=== PATIENT | female | born 1940 | race Caucasian/White ===

== ENCOUNTER 2021-03-13 13:31 | Emergency (ER) | payer MEDICARE ==
[~2021-03-13] VITALS: Ht 162.6 cm; Wt 63.2 kg
[~2021-03-13 13:31] MED LIST: HAWT1CAP PO; IRBE75TA4 PO; MOOD400T PO; MUCI600T31 PO; ROBI1LIQ9 PO; ROBILIQ7 PO; VENTAER INH
[2021-03-13 15:47] LABS: BASO % 0.5 % (0.0-1.0); EOS # 0.3 10^3/uL (0.0-0.5); EOS % 5.6 % (0.0-3.0); HEMATOCRIT 35.3 % (36.0-47.0); HEMOGLOBIN 11.7 g/dl (12.0-15.5); LYMPH # 1.5 10^3/uL (1.5-5.0); LYMPH % 27.1 % (24.0-44.0); MEAN CORPUSCULAR HEMOGLOBIN 30.2 pg (27.0-33.0); MEAN CORPUSCULAR HGB CONC 33.1 g/dl (32.0-36.5); MONO # 0.5 10^3/uL (0.0-0.8); MONO % 8.7 % (2.0-8.0); NEUTROPHILS # 3.2 10^3/uL (1.5-8.5); NEUTROPHILS % 57.9 % (36.0-66.0); PLATELET COUNT, AUTOMATED 261 10^3/uL (150-450); RED BLOOD COUNT 3.88 10^6/uL (4.00-5.40); WHITE BLOOD COUNT 5.5 10^3/uL (4.0-10.0)
[2021-03-13 16:31] LABS: ALBUMIN 3.9 GM/DL (3.2-5.2); ALT/SGPT 25 U/L (12-78); BILIRUBIN,DIRECT 0.1 MG/DL (0.0-0.2); BILIRUBIN,TOTAL 0.5 MG/DL (0.2-1.0); BLOOD UREA NITROGEN 26 MG/DL (7-18); CALCIUM LEVEL 9.4 MG/DL (8.8-10.2); CARBON DIOXIDE LEVEL 28 MEQ/L (21-32); CHLORIDE LEVEL 111 MEQ/L (98-107); GLOMERULAR FILTRATION RATE > 60.0 (>32); GLUCOSE, FASTING 106 MG/DL (70-100); NT-PRO BNP 156 PG/ML (<450); POTASSIUM SERUM 4.2 MEQ/L (3.5-5.1); SODIUM LEVEL 144 MEQ/L (136-145); THYROID STIMULATING HORMONE 0.392 uIU/ML (0.358-3.740); TOTAL PROTEIN 6.8 GM/DL (6.4-8.2)
[2021-03-13] MEDS ORDERED: ISOVUE-370 76% 100ML VIAL As Ordered ONE (16:41)
[2021-03-13] MEDS ORDERED: methylPREDNISolone 125MG 2ML VIAL IV ONE (17:30)
[2021-03-13] MEDS ORDERED: PRED10TA2 PO (17:39)
== END 2021-03-13 17:52 | disposition home or self-care (01) ==
LOC: M ED 13:31 → MERGE 13:31 → M ED 17:52
DX: J44.1 Chronic obstructive pulmonary disease with (acute) exacerbation (principal); R22.42 Localized swelling, mass and lump, left lower limb; I10 Essential (primary) hypertension; K21.9 Gastro-esophageal reflux disease without esophagitis; Z79.899 Other long term (current) drug therapy; F17.210 Nicotine dependence, cigarettes, uncomplicated
CPT/HCPCS: 71045; 71275; 80047; 80048; 80076; 83880; 84443; 84484; 85025; 93005; 93041; 93971; 94760; 96374; 99285; J2930; Q9967

== ENCOUNTER 2021-03-13 19:04 | Emergency (ER) | payer OTHER, MEDICARE ==
[~2021-03-13] VITALS: Ht 167.6 cm; Wt 65.9 kg
[~2021-03-13 19:04] MED LIST changes: +PRED10TA2 PO
== END 2021-03-13 21:53 | disposition home or self-care (01) ==
LOC: M ED 19:04 → MERGE 19:04 → M ED 21:53
DX: S50.11XA Contusion of right forearm, initial encounter (principal); S20.219A Contusion of unspecified front wall of thorax, initial encounter; V49.49XA Driver injured in collision with other motor vehicles in traffic accident, initial encounter; Y92.410 Unspecified street and highway as the place of occurrence of the external cause; I10 Essential (primary) hypertension; J44.9 Chronic obstructive pulmonary disease, unspecified; K21.9 Gastro-esophageal reflux disease without esophagitis; Z79.899 Other long term (current) drug therapy

== ENCOUNTER → 2022-01-26 | Outpatient (CLI) | payer MEDICARE | LOC: M WHC 10:15 | PROVIDERS: ATTEND Family Medicine | DX: E04.2 Nontoxic multinodular goiter (principal) ==

== ENCOUNTER → 2022-04-27 | Outpatient (CLI) | payer MEDICARE | LOC: M PLAIMG 08:33 | PROVIDERS: ATTEND Internal Medicine Pulmonary Disease | DX: J44.9 Chronic obstructive pulmonary disease, unspecified (principal) ==

== ENCOUNTER → 2022-10-01 | Outpatient (CLI) | payer MEDICARE | LOC: M RAD 10:30 | PROVIDERS: ATTEND Family Medicine | DX: E04.2 Nontoxic multinodular goiter (principal) ==

== ENCOUNTER → 2022-11-16 | Outpatient (CLI) | payer MEDICARE | LOC: M PLAIMG 07:50 | PROVIDERS: ATTEND Family Medicine | DX: M54.16 Radiculopathy, lumbar region (principal); I60.7 Nontraumatic subarachnoid hemorrhage from unspecified intracranial artery ==

== ENCOUNTER → 2023-03-31 | Outpatient (CLI) | payer MEDICARE | LOC: M RAD 11:41 | PROVIDERS: ATTEND Family Medicine | DX: E04.2 Nontoxic multinodular goiter (principal); J44.9 Chronic obstructive pulmonary disease, unspecified; I25.10 Atherosclerotic heart disease of native coronary artery without angina pectoris ==

== ENCOUNTER → 2023-05-06 | Outpatient (CLI) | payer MEDICARE | LOC: M RAD 10:13 | PROVIDERS: ATTEND Internal Medicine Pulmonary Disease | DX: J44.9 Chronic obstructive pulmonary disease, unspecified (principal) ==

== ENCOUNTER → 2023-06-15 | Outpatient (CLI) | payer MEDICARE | LOC: M WHC 09:12 | PROVIDERS: ATTEND Family Medicine | DX: Z13.820 Encounter for screening for osteoporosis (principal); M85.89 Other specified disorders of bone density and structure, multiple sites ==

== ENCOUNTER 2023-07-01 19:49 | Observation (INO) | payer MEDICARE ==
[~2023-07-01] VITALS: Ht 157.5 cm; Wt 52.7 kg
[2023-07-01] MEDS ORDERED: ISOVUE-370 76% 100ML VIAL As Ordered ONE (20:30)
[2023-07-01 20:42] LABS: BASO # 0.1 10^3/uL (0.0-0.2); BASO % 0.9 % (0.0-1.0); EOS # 0.3 10^3/uL (0.0-0.5); EOS % 4.7 % (0.0-3.0); HEMATOCRIT 35.4 % (36.0-47.0); HEMOGLOBIN 11.7 g/dl (12.0-15.5); LYMPH # 1.7 10^3/uL (1.5-5.0); LYMPH % 24.2 % (24.0-44.0); MEAN CORPUSCULAR HEMOGLOBIN 29.8 pg (27.0-33.0); MEAN CORPUSCULAR HGB CONC 33.1 g/dl (32.0-36.5); MEAN CORPUSCULAR VOLUME 90.3 fl (80.0-96.0); MONO # 0.6 10^3/uL (0.0-0.8); MONO % 8.7 % (2.0-8.0); NEUTROPHILS # 4.3 10^3/uL (1.5-8.5); NEUTROPHILS % 61.2 % (36.0-66.0); PLATELET COUNT, AUTOMATED 275 10^3/uL (150-450); RED BLOOD COUNT 3.92 10^6/uL (4.00-5.40)
[2023-07-01 20:56] LABS: INR 1.05; PARTIAL THROMBOPLASTIN TIME 26.7 SECONDS (24.8-34.2); PROTHROMBIN TIME 13.4 SECONDS (12.5-14.5)
[2023-07-01 21:06] LABS: ALBUMIN 3.6 G/DL (3.2-5.2); BILIRUBIN,DIRECT 0.2 MG/DL (<0.4); BILIRUBIN,TOTAL 0.5 MG/DL (0.3-1.2); TOTAL PROTEIN 6.3 G/DL (5.7-8.2)
[2023-07-01 21:24] LABS: RSV AMPLIFICATION NEGATIVE (NEGATIVE)
[2023-07-01] MEDS ORDERED: SPIR12.9 INH (21:53)
[2023-07-01] MEDS ORDERED: LABE20TAB PO (21:53)
[2023-07-01] MEDS ORDERED: SPIR-10 PO (21:53)
[2023-07-01] MEDS ORDERED: HYDR-3363 PO (21:53)
[2023-07-01] MEDS ORDERED: HOME MED LIST COMPLETE! XX SCH (21:55)
[2023-07-01] MEDS ORDERED: ACETAMINOPHEN TAB 650MG DOSE (2X325MG) PO PRN (22:25)
[2023-07-01] MEDS ORDERED: ALBUTEROL 90 MCG/ACT 8GM HFA INHALER INH PRN (23:20)
[2023-07-01 23:45] LABS: ALBUMIN 3.5 G/DL (3.2-5.2); ALKALINE PHOSPHATASE 54 U/L (46-116); ALT/SGPT 23 U/L (7.0-40); AST/SGOT 23 U/L (<34); BILIRUBIN,TOTAL 0.4 MG/DL (0.3-1.2); BLOOD UREA NITROGEN 23 MG/DL (9-23); CALCIUM LEVEL 9.3 MG/DL (8.3-10.6); CARBON DIOXIDE LEVEL 28 MMOL/L (20-31); CHLORIDE LEVEL 105 MMOL/L (98-107); CREATININE FOR GFR 0.79 MG/DL (0.55-1.30); GLOMERULAR FILTRATION RATE > 60.0 (>32); GLUCOSE, FASTING 99 MG/DL (74-106); POTASSIUM SERUM 4.8 MMOL/L (3.5-5.1); SODIUM LEVEL 141 MMOL/L (136-145); TOTAL PROTEIN 6.3 G/DL (5.7-8.2)
[2023-07-02 00:45] VITALS: BP 137/57; TEMP 98.8; O2SAT 95
[2023-07-02 04:00] VITALS: BP 130/50; TEMP 97; O2SAT 95
[2023-07-02 04:24] LABS: HEMATOCRIT 32.7 % (36.0-47.0); MEAN CORPUSCULAR HEMOGLOBIN 30.2 pg (27.0-33.0); MEAN CORPUSCULAR HGB CONC 33.6 g/dl (32.0-36.5); MEAN CORPUSCULAR VOLUME 89.8 fl (80.0-96.0); PLATELET COUNT, AUTOMATED 250 10^3/uL (150-450); RED BLOOD COUNT 3.64 10^6/uL (4.00-5.40); WHITE BLOOD COUNT 6.2 10^3/uL (4.0-10.0)
[2023-07-02 04:58] LABS: ALBUMIN 3.4 G/DL (3.2-5.2); ALKALINE PHOSPHATASE 53 U/L (46-116); ALT/SGPT 15 U/L (7.0-40); AST/SGOT 13 U/L (<34); BILIRUBIN,TOTAL 0.4 MG/DL (0.3-1.2); BLOOD UREA NITROGEN 22 MG/DL (9-23); CALCIUM LEVEL 9.3 MG/DL (8.3-10.6); CARBON DIOXIDE LEVEL 26 MMOL/L (20-31); CHLORIDE LEVEL 106 MMOL/L (98-107); CHOLESTEROL LEVEL 159 MG/DL (<200); CHOLESTEROL RISK RATIO 2.55 (<5); CREATININE FOR GFR 0.74 MG/DL (0.55-1.30); GLOMERULAR FILTRATION RATE > 60.0 (>32); GLUCOSE, FASTING 101 MG/DL (74-106); HDL CHOLESTEROL 62.3 MG/DL (>40); LDL CHOLESTEROL 80.9 MG/DL (<100); NON-HDL-C 96.7 MG/DL; POTASSIUM SERUM 3.9 MMOL/L (3.5-5.1); SODIUM LEVEL 139 MMOL/L (136-145); TRIGLYCERIDES LEVEL 79 MG/DL (<150)
[2023-07-02] MEDS ORDERED: TIOTROPIUM INHALER/CAPSULE (SPIRIVA) INH SCH (08:00)
[2023-07-02] MEDS ORDERED: LABETALOL 200 MG TAB PO SCH (09:00)
[2023-07-02] MEDS ORDERED: ENOXAPARIN 40MG/0.4ML SYRINGE (J1650 PER 10MG) SC SCH (09:00)
[2023-07-02] MEDS ORDERED: SPIRONOLACTONE 25 MG TAB PO SCH (09:00)
[2023-07-02] MEDS ORDERED: PANTOPRAZOLE 40MG TAB (PROTONIX) PO SCH (09:00)
[2023-07-02] MEDS ORDERED: ATOR1TAB21 PO ×2 (09:50→10:07)
[2023-07-02] MEDS ORDERED: ASPI81CH8 PO ×2 (09:50→10:07)
[2023-07-02] MEDS ORDERED: ASPIRIN 81MG CHEW TABLET PO SCH (09:50)
[2023-07-02 10:00] VITALS: BP 134/61; TEMP 97.7; O2SAT 94
[2023-07-02 13:15] VITALS: BP 151/75
[2023-07-02] MEDS ORDERED: CARA1TAB6 PO ×2 (13:16→13:43)
[2023-07-02 14:00] VITALS: BP 145/65; TEMP 98.2; O2SAT 94
[2023-07-02] MEDS ORDERED: SUCRALFATE SUSP 1GM/10ML UD PO ONE (14:00)
[2023-07-02] MEDS ORDERED: DICYCLOMINE 10 MG CAP PO ONE (15:00)
[2023-07-02] MEDS ORDERED: SENO8.6T10 PO (15:29)
[2023-07-02] MEDS ORDERED: MIRA3350 PO (15:29)
[2023-07-02] MEDS ORDERED: SFHMOMUDC PO (15:29)
[2023-07-02] MEDS ORDERED: MOM 30ML SUSPENSION UDC PO ONE (15:30)
[2023-07-02] MEDS ORDERED: SENOKOT S TAB PO ONE (15:30)
[2023-07-02] MEDS ORDERED: MIRALAX *UNIT DOSE* 17GM PACKET PO ONE (15:30)
[2023-07-02] MEDS ORDERED: ATORVASTATIN 20 MG TAB PO SCH (21:00)
== END 2023-07-02 16:40 | disposition home or self-care (01) ==
LOC: M ED 19:49 → M ED INP 22:24 → ENRESERV 23:58 → M MSPAV 07-02 00:45
PROVIDERS: ADMIT Internal Medicine; ATTEND General Practice
DX: G45.9 Transient cerebral ischemic attack, unspecified (principal); I16.0 Hypertensive urgency; I44.0 Atrioventricular block, first degree; J44.9 Chronic obstructive pulmonary disease, unspecified; R29.700 NIHSS score 0; F17.210 Nicotine dependence, cigarettes, uncomplicated; Z79.899 Other long term (current) drug therapy; Z79.82 Long term (current) use of aspirin; Z66 Do not resuscitate
CPT/HCPCS: 36415; 70450; 70496; 70498; 70551; 71045; 74018; 80047; 80053; 80061; 80076; 81001; 83605; 84484; 85025; 85027; 85610; 85730; 87631; 93005; 93041; 94664; 94760; 97161; 99285; Q9967

== ENCOUNTER → 2023-10-25 | Outpatient (CLI) | payer MEDICARE ==
[~2023-10-25] MED LIST changes: +ASPI81CH8 PO; +ATOR1TAB21 PO; +CARA1TAB6 PO; +HYDR-3363 PO; +IRBE75TA11 PO; -IRBE75TA4 PO; +LABE20TAB PO; +MIRA3350 PO; +SENO8.6T10 PO; +SFHMOMUDC PO; +SPIR-10 PO; +SPIR12.9 INH
== END ==
LOC: M RAD 14:13
PROVIDERS: ATTEND Family Medicine
DX: E04.2 Nontoxic multinodular goiter (principal)

== ENCOUNTER 2024-06-11 02:51 | Observation (INO) | payer MEDICARE ==
[~2024-06-11] VITALS: Ht 162.6 cm; Wt 47.3 kg
[~2024-06-11 02:51] MED LIST changes: +MOOD PLUS SAM-400 MG PO; -MOOD400T PO
[2024-06-11] MEDS ORDERED: ISOVUE-370 76% 100ML VIAL As Ordered ONE (03:39)
[2024-06-11 03:51] LABS: BASO # 0.1 10^3/uL (0.0-0.2); BASO % 0.9 % (0.0-1.0); EOS # 0.4 10^3/uL (0.0-0.5); EOS % 6.2 % (0.0-3.0); HEMATOCRIT 34.6 % (36.0-47.0); HEMOGLOBIN 11.3 g/dl (12.0-15.5); LYMPH # 1.9 10^3/uL (1.5-5.0); LYMPH % 32.9 % (24.0-44.0); MEAN CORPUSCULAR HEMOGLOBIN 29.7 pg (27.0-33.0); MEAN CORPUSCULAR HGB CONC 32.7 g/dl (32.0-36.5); MEAN CORPUSCULAR VOLUME 91.1 fl (80.0-96.0); MONO # 0.5 10^3/uL (0.0-0.8); MONO % 9.4 % (2.0-8.0); NEUTROPHILS # 2.9 10^3/uL (1.5-8.5); NEUTROPHILS % 50.4 % (36.0-66.0); PLATELET COUNT, AUTOMATED 271 10^3/uL (150-450); WHITE BLOOD COUNT 5.8 10^3/uL (4.0-10.0)
[2024-06-11 03:52] VITALS: BP 194/76; O2SAT 97
[2024-06-11 04:03] LABS: INR 0.88; PARTIAL THROMBOPLASTIN TIME 26.4 SECONDS (24.8-34.2); PROTHROMBIN TIME 12.2 SECONDS (12.5-14.5)
[2024-06-11 04:13] LABS: BLOOD UREA NITROGEN 20 MG/DL (9-23); CALCIUM LEVEL 9.3 MG/DL (8.3-10.6); CARBON DIOXIDE LEVEL 28 MMOL/L (20-31); CHLORIDE LEVEL 110 MMOL/L (98-107); CREATININE FOR GFR 0.95 MG/DL (0.55-1.30); GLOMERULAR FILTRATION RATE 59.5 (>32); GLUCOSE, FASTING 121 MG/DL (74-106); SODIUM LEVEL 140 MMOL/L (136-145)
[2024-06-11] MEDS: ASPIRIN 325 MG TAB PO ONE (05:50)
[2024-06-11] MEDS ORDERED: INCR1INH INH (06:12)
[2024-06-11] MEDS ORDERED: SAM-400T3 PO (06:12)
[2024-06-11] MEDS ORDERED: PRIM50TA6 PO (06:12)
[2024-06-11] MEDS ORDERED: BREO1INH3 INH (06:12)
[2024-06-11] MEDS ORDERED: AMLO1TAB24 PO (06:12)
[2024-06-11] MEDS ORDERED: HOME MED LIST COMPLETE! XX SCH (06:15)
[2024-06-11] MEDS: ASPIRIN 81MG ENTERIC TABLET PO SCH (09:00)
[2024-06-11 09:08] LABS: ALBUMIN 3.2 G/DL (3.2-5.2); ALKALINE PHOSPHATASE 91 U/L (35-104); ALT/SGPT 13 U/L (7.0-40); AST/SGOT < 8 U/L (<34); BILIRUBIN,DIRECT < 0.1 MG/DL (<0.4); BILIRUBIN,TOTAL 0.3 MG/DL (0.3-1.2); CHOLESTEROL LEVEL 182 MG/DL (<200); CHOLESTEROL RISK RATIO 2.55 (<5); HDL CHOLESTEROL 71.1 MG/DL (>40); LDL CHOLESTEROL 95.7 MG/DL (<100); NON-HDL-C 110.9 MG/DL; TOTAL PROTEIN 6.1 G/DL (5.7-8.2); TRIGLYCERIDES LEVEL 76 MG/DL (<150)
[2024-06-11 09:11] LABS: FREE T4 1.12 NG/DL (0.89-1.76); THYROID STIMULATING HORMONE 1.163 uIU/ML (0.55-4.78)
[2024-06-11] MEDS ORDERED: ALBUTEROL 90 MCG/ACT 8GM HFA INHALER INH PRN (09:25)
[2024-06-11 09:30] VITALS: BP_SYST 149; BP_SYST 152; BP_DIAS 64; BP_DIAS 68; TEMP 97.7; O2SAT 97
[2024-06-11 09:38] VITALS: BP 149/68; TEMP 97.7; O2SAT 97
[2024-06-11] MEDS: CLOPIDOGREL 75 MG TAB PO SCH (09:49)
[2024-06-11] MEDS: ATORVASTATIN 20 MG TAB PO SCH (09:49)
[2024-06-11 09:54] LABS: HEMOGLOBIN A1c 5.4 % (4.0-6.0)
[2024-06-11 11:14] VITALS: BP 165/70; TEMP 98.4; O2SAT 96
[2024-06-11] MEDS: NICOTINE 14 MG/24 HR TRANSDERMAL TD SCH (12:54)
[2024-06-11] MEDS: LIDOCAINE 5% (LIDODERM) PATCH TD PRN (12:54)
[2024-06-11] MEDS ORDERED: hydrALAZINE 20MG/ML 1ML VIAL IV PRN (13:10)
[2024-06-11 16:24] VITALS: BP 148/68; TEMP 97.2; O2SAT 95
[2024-06-11] MEDS: SYMBICORT 160/4.5MCG INHALER 6GM INH SCH (20:13)
[2024-06-11 20:26] VITALS: BP 158/64; TEMP 97.1; O2SAT 94
[2024-06-11] MEDS: ACETAMINOPHEN 325 MG TAB PO PRN (20:59)
[2024-06-11] MEDS: PRIMIDONE 25MG PER 1/2 TABLET PO SCH (21:00)
[2024-06-12] VITALS (10 sets, daily range): BP systolic 126–178; BP diastolic 62–88; TEMP 97.1–98.6; O2SAT 94–98
[2024-06-12 05:49] LABS: BASO # 0.1 10^3/uL (0.0-0.2); EOS # 0.3 10^3/uL (0.0-0.5); EOS % 5.7 % (0.0-3.0); HEMATOCRIT 33.6 % (36.0-47.0); HEMOGLOBIN 10.9 g/dl (12.0-15.5); LYMPH # 1.6 10^3/uL (1.5-5.0); LYMPH % 26.2 % (24.0-44.0); MEAN CORPUSCULAR HEMOGLOBIN 29.1 pg (27.0-33.0); MEAN CORPUSCULAR HGB CONC 32.4 g/dl (32.0-36.5); MEAN CORPUSCULAR VOLUME 89.8 fl (80.0-96.0); MONO # 0.6 10^3/uL (0.0-0.8); MONO % 9.5 % (2.0-8.0); NEUTROPHILS # 3.4 10^3/uL (1.5-8.5); NEUTROPHILS % 57.3 % (36.0-66.0); PLATELET COUNT, AUTOMATED 235 10^3/uL (150-450); RED BLOOD COUNT 3.74 10^6/uL (4.00-5.40); WHITE BLOOD COUNT 5.9 10^3/uL (4.0-10.0)
[2024-06-12 06:14] LABS: BLOOD UREA NITROGEN 15 MG/DL (9-23); CALCIUM LEVEL 9.2 MG/DL (8.3-10.6); CARBON DIOXIDE LEVEL 27 MMOL/L (20-31); CHLORIDE LEVEL 113 MMOL/L (98-107); CREATININE FOR GFR 0.61 MG/DL (0.55-1.30); GLOMERULAR FILTRATION RATE > 60.0 (>32); GLUCOSE, FASTING 103 MG/DL (74-106); POTASSIUM SERUM 4.1 MMOL/L (3.5-5.1); SODIUM LEVEL 143 MMOL/L (136-145)
[2024-06-12] MEDS: TIOTROPIUM INHALER/CAPSULE (SPIRIVA) INH SCH (08:00)
[2024-06-12] MEDS: amLODIPine 5 MG TAB PO SCH (08:21)
[2024-06-12] MEDS ORDERED: ASPI-1 PO (08:47)
[2024-06-12] MEDS ORDERED: ATOR40TA75 PO (08:47)
[2024-06-12] MEDS ORDERED: ATOR1TAB21 PO (08:47)
[2024-06-12] MEDS: CARVedilol 3.125 MG TAB PO ONE (13:42)
[2024-06-12] MEDS: amLODIPine 5 MG TAB PO ONE (13:42)
[2024-06-12] MEDS: hydrALAZINE 20MG/ML 1ML VIAL IV ONE (15:39)
[2024-06-12] MEDS: LABETALOL 100MG/20ML VIAL IV ONE (16:55)
[2024-06-12] MEDS ORDERED: LABETALOL 100MG/20ML VIAL IV STA (17:05)
[2024-06-12] MEDS: cloNIDine 0.1MG TABLET PO ONE (17:28)
[2024-06-12] MEDS: LABETALOL 200 MG TAB PO ONE (18:13)
[2024-06-13] MEDS ORDERED: LABETALOL 200 MG TAB PO SCH (09:00)
== END 2024-06-12 19:29 | disposition home or self-care (01) ==
LOC: M ED 02:51 → M ED INP 02:52 → M PCU 09:22
PROVIDERS: ADMIT Internal Medicine; ATTEND Internal Medicine
DX: R29.810 Facial weakness (principal); R20.0 Anesthesia of skin; I10 Essential (primary) hypertension; E78.5 Hyperlipidemia, unspecified; M54.2 Cervicalgia; J44.9 Chronic obstructive pulmonary disease, unspecified; K21.9 Gastro-esophageal reflux disease without esophagitis; G25.0 Essential tremor; M48.07 Spinal stenosis, lumbosacral region; M85.68 Other cyst of bone, other site; Z86.73 Personal history of transient ischemic attack (TIA), and cerebral infarction without residual deficits; G31.1 Senile degeneration of brain, not elsewhere classified; I67.82 Cerebral ischemia; I44.0 Atrioventricular block, first degree; F17.210 Nicotine dependence, cigarettes, uncomplicated; Z90.711 Acquired absence of uterus with remaining cervical stump; Z98.41 Cataract extraction status, right eye; Z98.42 Cataract extraction status, left eye; Z80.9 Family history of malignant neoplasm, unspecified; Z79.899 Other long term (current) drug therapy
CPT/HCPCS: 36415; 70450; 70496; 70498; 70551; 71045; 80047; 80048; 80061; 80076; 83036; 83735; 84439; 84443; 85025; 85610; 85730; 93005; 93041; 93306; 94640; 94760; 96374; 96375; 97161; 97165; 99285; G0378; J0360; J1920; Q9967

== ENCOUNTER 2024-06-14 15:07 | Observation (INO) | payer MEDICARE ==
[~2024-06-14] VITALS: Ht 160 cm; Wt 52.3 kg
[2024-06-14] VITALS (8 sets, daily range): BP systolic 120–173; BP diastolic 53–80; TEMP 97.4–98.5; O2SAT 93–97
[~2024-06-14 15:07] MED LIST changes: +AMLO1TAB24 PO; +ASPI-1 PO; +ATOR40TA75 PO; +BREO1INH3 INH; +INCR1INH INH; +PRIM50TA6 PO; +SAM-400T3 PO
[2024-06-14 15:56] LABS: BASO # 0.1 10^3/uL (0.0-0.2); BASO % 0.8 % (0.0-1.0); EOS # 0.3 10^3/uL (0.0-0.5); EOS % 4.8 % (0.0-3.0); HEMATOCRIT 33.8 % (36.0-47.0); HEMOGLOBIN 11.1 g/dl (12.0-15.5); LYMPH # 1.6 10^3/uL (1.5-5.0); LYMPH % 27.2 % (24.0-44.0); MEAN CORPUSCULAR HEMOGLOBIN 29.9 pg (27.0-33.0); MEAN CORPUSCULAR HGB CONC 32.8 g/dl (32.0-36.5); MEAN CORPUSCULAR VOLUME 91.1 fl (80.0-96.0); MONO # 0.5 10^3/uL (0.0-0.8); MONO % 8.8 % (2.0-8.0); NEUTROPHILS # 3.4 10^3/uL (1.5-8.5); NEUTROPHILS % 58.1 % (36.0-66.0); PLATELET COUNT, AUTOMATED 284 10^3/uL (150-450); RED BLOOD COUNT 3.71 10^6/uL (4.00-5.40); WHITE BLOOD COUNT 5.9 10^3/uL (4.0-10.0)
[2024-06-14] MEDS ORDERED: ISOVUE-370 76% 100ML VIAL As Ordered ONE (16:09)
[2024-06-14 16:11] LABS: INR 0.93; PARTIAL THROMBOPLASTIN TIME 25.4 SECONDS (24.8-34.2); PROTHROMBIN TIME 12.8 SECONDS (12.5-14.5)
[2024-06-14 16:21] LABS: BLOOD UREA NITROGEN 35 MG/DL (9-23); CALCIUM LEVEL 9.8 MG/DL (8.3-10.6); CARBON DIOXIDE LEVEL 28 MMOL/L (20-31); CHLORIDE LEVEL 107 MMOL/L (98-107); CREATININE FOR GFR 0.77 MG/DL (0.55-1.30); GLOMERULAR FILTRATION RATE > 60.0 (>32); GLUCOSE, FASTING 140 MG/DL (74-106); POTASSIUM SERUM 4.4 MMOL/L (3.5-5.1); SODIUM LEVEL 138 MMOL/L (136-145)
[2024-06-14] MEDS ORDERED: ATOR40TA75 PO (17:00)
[2024-06-14] MEDS ORDERED: BAYE325T13 PO (17:00)
[2024-06-14] MEDS ORDERED: HOME MED LIST COMPLETE! XX SCH (17:00)
[2024-06-14] MEDS ORDERED: ALBUTEROL 90 MCG/ACT 8GM HFA INHALER INH PRN (17:45)
[2024-06-15] MEDS: PRIMIDONE 25MG PER 1/2 TABLET PO SCH (00:25)
[2024-06-15 03:13] VITALS: BP 126/60; TEMP 97; O2SAT 96
[2024-06-15 04:18] VITALS: BP 126/60; TEMP 97; O2SAT 96
[2024-06-15 06:24] LABS: BASO % 0.8 % (0.0-1.0); EOS # 0.3 10^3/uL (0.0-0.5); EOS % 5.9 % (0.0-3.0); HEMATOCRIT 32.6 % (36.0-47.0); HEMOGLOBIN 10.6 g/dl (12.0-15.5); LYMPH # 1.5 10^3/uL (1.5-5.0); LYMPH % 29.3 % (24.0-44.0); MEAN CORPUSCULAR HEMOGLOBIN 29.4 pg (27.0-33.0); MEAN CORPUSCULAR HGB CONC 32.5 g/dl (32.0-36.5); MEAN CORPUSCULAR VOLUME 90.6 fl (80.0-96.0); MONO # 0.6 10^3/uL (0.0-0.8); MONO % 10.5 % (2.0-8.0); NEUTROPHILS # 2.8 10^3/uL (1.5-8.5); NEUTROPHILS % 53.1 % (36.0-66.0); PLATELET COUNT, AUTOMATED 242 10^3/uL (150-450); WHITE BLOOD COUNT 5.3 10^3/uL (4.0-10.0)
[2024-06-15 06:51] LABS: BLOOD UREA NITROGEN 32 MG/DL (9-23); CALCIUM LEVEL 9.5 MG/DL (8.3-10.6); CARBON DIOXIDE LEVEL 28 MMOL/L (20-31); CHLORIDE LEVEL 112 MMOL/L (98-107); GLOMERULAR FILTRATION RATE > 60.0 (>32); GLUCOSE, FASTING 93 MG/DL (74-106); POTASSIUM SERUM 4.3 MMOL/L (3.5-5.1); SODIUM LEVEL 143 MMOL/L (136-145)
[2024-06-15 08:00] VITALS: BP 147/68; TEMP 97.4; O2SAT 95
[2024-06-15] MEDS: ENOXAPARIN 40MG/0.4ML SYRINGE (J1650 PER 10MG) SC SCH (08:13)
[2024-06-15] MEDS: CLOPIDOGREL 75 MG TAB PO SCH (08:13)
[2024-06-15] MEDS: ATORVASTATIN 20 MG TAB PO SCH (08:13)
[2024-06-15] MEDS: ACETAMINOPHEN 325 MG TAB PO PRN (08:18)
[2024-06-15] MEDS ORDERED: CLOP75TA99 PO (09:01)
[2024-06-15] MEDS ORDERED: LABE200T5 PO (12:21)
== END 2024-06-15 12:39 | disposition home or self-care (01) ==
LOC: M ED 15:07 → M ED INP 15:08 → M PCU 21:11
PROVIDERS: ADMIT Internal Medicine; ATTEND Internal Medicine
DX: I63.532 Cerebral infarction due to unspecified occlusion or stenosis of left posterior cerebral artery (principal); E78.5 Hyperlipidemia, unspecified; I10 Essential (primary) hypertension; J44.9 Chronic obstructive pulmonary disease, unspecified; K21.9 Gastro-esophageal reflux disease without esophagitis; G25.0 Essential tremor; M48.07 Spinal stenosis, lumbosacral region; M85.68 Other cyst of bone, other site; Z86.73 Personal history of transient ischemic attack (TIA), and cerebral infarction without residual deficits; G31.1 Senile degeneration of brain, not elsewhere classified; Z98.41 Cataract extraction status, right eye; Z98.42 Cataract extraction status, left eye; Z90.711 Acquired absence of uterus with remaining cervical stump; Z98.890 Other specified postprocedural states; Z80.9 Family history of malignant neoplasm, unspecified; F17.210 Nicotine dependence, cigarettes, uncomplicated; Z79.899 Other long term (current) drug therapy; Z79.82 Long term (current) use of aspirin; Z66 Do not resuscitate
CPT/HCPCS: 36415; 70450; 70496; 70498; 70551; 71045; 80047; 80048; 83735; 85025; 85610; 85730; 86850; 86900; 86901; 93005; 93041; 94760; 95819; 96372; 97161; 99285; G0378; J1650; Q9967

== ENCOUNTER → 2024-06-15 | Outpatient (CLI) | payer MEDICARE ==
[~2024-06-15] MED LIST changes: +BAYE325T13 PO; +CLOP75TA99 PO; +LABE200T5 PO
== END ==
LOC: M EKG 12:46
PROVIDERS: ATTEND Internal Medicine
DX: I63.9 Cerebral infarction, unspecified (principal)

== ENCOUNTER → 2024-12-03 | Outpatient (CLI) | payer MEDICARE | LOC: M PLAIMG 12:09 | PROVIDERS: ATTEND Internal Medicine Pulmonary Disease | DX: J44.9 Chronic obstructive pulmonary disease, unspecified (principal) ==

== ENCOUNTER 2024-12-12 10:26 | Emergency (ER) | payer MEDICARE ==
[~2024-12-12] VITALS: Ht 157.5 cm; Wt 51.6 kg
[2024-12-12 11:08] LABS: BASO # 0.1 10^3/uL (0.0-0.2); EOS # 0.3 10^3/uL (0.0-0.5); EOS % 4.8 % (0.0-3.0); HEMATOCRIT 36.9 % (36.0-47.0); HEMOGLOBIN 12.2 g/dl (12.0-15.5); LYMPH # 1.3 10^3/uL (1.5-5.0); LYMPH % 21.9 % (24.0-44.0); MEAN CORPUSCULAR HEMOGLOBIN 30.4 pg (27.0-33.0); MEAN CORPUSCULAR HGB CONC 33.1 g/dl (32.0-36.5); MONO # 0.6 10^3/uL (0.0-0.8); MONO % 10.5 % (2.0-8.0); NEUTROPHILS # 3.7 10^3/uL (1.5-8.5); NEUTROPHILS % 61.6 % (36.0-66.0); PLATELET COUNT, AUTOMATED 267 10^3/uL (150-450); RED BLOOD COUNT 4.01 10^6/uL (4.00-5.40)
[2024-12-12 11:21] LABS: INR 0.87; PARTIAL THROMBOPLASTIN TIME 26.2 SECONDS (24.8-34.2); PROTHROMBIN TIME 12.1 SECONDS (12.5-14.5)
[2024-12-12 11:31] LABS: CALCIUM LEVEL 9.2 MG/DL (8.3-10.6); CREATININE FOR GFR 0.71 MG/DL (0.55-1.30); GLOMERULAR FILTRATION RATE 82.8 (>32); POTASSIUM SERUM 4.4 MMOL/L (3.5-5.1)
[2024-12-12] MEDS ORDERED: CLOP75TA99 PO (12:12)
[2024-12-12 12:29] VITALS: BP 162/71; TEMP 98.7; O2SAT 96
== END 2024-12-12 12:25 | disposition home or self-care (01) ==
LOC: M ED 10:26
DX: G45.9 Transient cerebral ischemic attack, unspecified (principal); J44.9 Chronic obstructive pulmonary disease, unspecified; K21.9 Gastro-esophageal reflux disease without esophagitis; I10 Essential (primary) hypertension; E78.5 Hyperlipidemia, unspecified; Z86.73 Personal history of transient ischemic attack (TIA), and cerebral infarction without residual deficits; Z79.899 Other long term (current) drug therapy

== ENCOUNTER → 2025-05-10 | Outpatient (CLI) | payer MEDICARE | LOC: M PLAIMG 11:09 | PROVIDERS: ATTEND Internal Medicine Pulmonary Disease | DX: J44.9 Chronic obstructive pulmonary disease, unspecified (principal); R91.1 Solitary pulmonary nodule ==